=== PATIENT | female | born 1945 | race Caucasian/White ===

== ENCOUNTER 2025-02-17 08:51 | Emergency (ER) | payer MEDICARE, OTHER ==
[2025-02-17 09:00] VITALS: RESP 18
--- NOTE | 2025-02-17 09:01 | ED ---
General Adult HPI - General Chief complaint: Abdominal Pain Stated complaint: Abd Pain Time Seen by Provider: 02/17/25 08:52 Source: patient, EMS, RN notes reviewed Mode of arrival: EMS Limitations: no limitations - History of Present Illness Initial comments: Patient is a 79-year-old female present to the emergency department with concerns with abdominal discomfort. Onset of symptoms was around 8 days ago. Patient was constipated. Patient then took laxatives. Patient has had diarrhea for the last day. Patient is having discomfort still. Patient has had nausea however only vomited 1 time. Zofran provided by EMS. No nausea at this time. Patient has had decreased appetite and decreased oral intake. No history of chronic similar symptoms previously - Related Data Allergies Allergy/AdvReac Type Severity Reaction Status Date / Time No Known Allergies Allergy Verified 02/17/25 08:59 Review of Systems ROS Statement: Those systems with pertinent positive or pertinent negative responses have been documented in the HPI. ROS Other: All systems not noted in ROS Statement are negative. Constitutional: Denies: fever Eyes: Denies: eye pain ENT: Denies: ear pain Respiratory: Denies: cough, dyspnea Cardiovascular: Denies: chest pain Gastrointestinal: Reports: as per HPI, abdominal pain, nausea, vomiting, diarrhea, constipation Musculoskeletal: Denies: back pain Past Medical History Past Medical History: Hyperlipidemia, Hypertension History of Any Multi-Drug Resistant Organisms: None Reported Past Surgical History: Orthopedic Surgery Additional Past Surgical History / Comment(s): Lt hip 05/02/2024 at [facility]. Past Psychological History: No Psychological Hx Reported General Exam Limitations: no limitations General appearance: alert, in no apparent distress Head exam: Present: normocephalic Eye exam: Present: normal appearance Neck exam: Present: normal inspection Respiratory exam: Present: normal lung sounds bilaterally Cardiovascular Exam: Present: regular rate, normal rhythm GI/Abdominal exam: Present: soft, tenderness (Mild to moderate diffuse tenderness, upper greater than lower abdomen), normal bowel sounds. Absent: distended, guarding, rebound, rigid, pulsatile mass Extremities exam: Present: normal inspection Neurological exam: Present: alert Psychiatric exam: Present: normal affect, normal mood Skin exam: Present: normal color Course Vital Signs 02/17/25 08:54 Temperature 97.1 F L Pulse Rate 94 Respiratory 18 Rate Blood Pressure 180/93 O2 Sat by Pulse 95 Oximetry Medical Decision Making - Medical Decision Making Was pt. sent in by a medical professional or institution (YISEL Malik, CANOPY INSPECTOR, urgent care, hospital, or jail...) When possible be specific @ -No Did you speak to anyone other than the patient for history (EMS, parent, family, police, friend...)? What history was obtained from this source @ -No Did you review nursing and triage notes (agree or disagree)? Why? @ -I reviewed and agree with nursing and triage notes Were old charts reviewed (outside hosp., previous admission, EMS record, old EKG, old radiological studies, urgent care reports/EKG's, jail records)? Report findings @ -No old charts were reviewed Differential Diagnosis (chest pain, altered mental status, abdominal pain women, abdominal pain men, vaginal bleeding, weakness, fever, dyspnea, syncope, headache, dizziness, GI bleed, back pain, seizure, CVA, palpatations, mental health, musculoskeletal)? @ -Differential Abdominal Pain Women: Appendicitis, Cholecystitis, diverticulosis, ischemic bowel, pancreatitis, hepatitis, UTI, gastroenteritis, AAA, incarcerated hernia, bowel obstruction, constipation, inflammatory bowel, hepatitis, peptic ulcer disease, splenic infarction, perforated viscus, vulvitis, ovarian torsion, PID, kidney stone, placenta abruption, this is not meant to be an all-inclusive list EKG interpreted by me (3pts min.). @ -As above X-rays interpreted by me (1pt min.). @ -None done CT interpreted by me (1pt min.). @ -CT scan shows colitis, probable ovarian cyst, compression fracture, atelectasis U/S interpreted by me (1pt. min.). @ -None done What testing was considered but not performed or refused? (CT, X-rays, U/S, labs)? Why? @ -None What meds were considered but not given or refused? Why? @ -None Did you discuss the management of the patient with other professionals (professionals i.e. YISEL Malik, CANOPY INSPECTOR, lab, RT, psych nurse, licensed master social worker, assembly line machine operator, teacher, veterinary medical officer, geriatric case manager)? Give summary @ -No Was smoking cessation discussed for >3mins.? @ -No Was critical care preformed (if so, how long)? @ -No Were there social determinants of health that impacted care today? How? (Homelessness, low income, unemployed, alcoholism, drug addiction, transportation, low edu. Level, literacy, decrease access to med. care, fdc, rehab)? @ -No Was there de-escalation of care discussed even if they declined (Discuss DNR or withdrawal of care, Hospice)? DNR status @ -No What co-morbidities impacted this encounter? (DM, HTN, Smoking, COPD, CAD, Cancer, CVA, ARF, Chemo, Hep., AIDS, mental health diagnosis, sleep apnea, morbid obesity)? @ -Patient states there was a history of back injury 3 years ago. Patient denies any cough or difficulty breathing or upper respiratory symptoms. Was patient admitted / discharged? Hospital course, mention meds given and route, prescriptions, significant lab abnormalities, going to OR and other pertinent info. @ -Patient presents with abdominal symptoms. CAT scan concerning for colitis. Patient reevaluated and feeling much better. Patient will be discharged with primary care physician update. Patient updated on results and need for follow- up. Undiagnosed new problem with uncertain prognosis? @ -No Drug Therapy requiring intensive monitoring for toxicity (Heparin, Nitro, Insulin, Cardizem)? @ -No Were any procedures done? @ -No Diagnosis/symptom? @ -Colitis Acute, or Chronic, or Acute on Chronic? @ -Acute Uncomplicated (without systemic symptoms) or Complicated (systemic symptoms)? @ -Default Side effects of treatment? @ -No Exacerbation, Progression, or Severe Exacerbation? @ -No Poses a threat to life or bodily function? How? (Chest pain, [place], [place], pneumonia, PE, COPD, DKA, ARF, appy, cholecystitis, CVA, Diverticulitis, Homicidal, Suicidal, threat to staff... and all critical care pts) @ -No - Lab Data Result diagrams: 02/17/25 09:15 02/17/25 09:15 Lab Results 02/17/25 02/17/25 02/17/25 Range/Units 09:15 09:15 09:15 WBC 9.82 (4.50-10.00) 10*3/uL RBC 3.58 L (4.10-5.20) 10*6/uL Hgb 11.9 L (12.0-15.0) g/dL Hct 35.0 L (37.2-46.3) % MCV 97.8 H (80.0-97.0) fL MCH 33.2 H (27.0-32.0) pg MCHC 34.0 (32.0-37.0) g/dL Plt Count 336 (140-440) 10*3/uL MPV 9.0 L (9.5-12.2) fL Immature Gran % (Auto) 0.4 % Neutrophils % 86.4 % Lymphocytes % 8.9 % Monocytes % 3.8 % Eosinophils % 0.0 % Basophils % 0.5 % Immature Gran # 0.04 (0.00-0.04) 10*3/uL Neutrophils # 8.49 H (1.80-7.70) 10*3/uL Lymphocytes # 0.87 L (0.90-5.00) 10*3/uL Monocytes # 0.37 (0.20-1.00) 10*3/uL Eosinophils # 0.00 L (0.04-0.35) 10*3/uL Basophils # 0.05 (0.00-0.10) 10*3/uL PT 10.6 (10.0-12.5) sec INR 0.9 (<1.2) APTT 22.2 (22.0-30.0) sec Sodium 135 L (137-145) mmol/L Potassium 3.0 L (3.5-5.1) mmol/L Chloride 95 L (98-107) mmol/L Carbon Dioxide 27 (22-30) mmol/L Anion Gap 13 mmol/L BUN 16 (7-17) mg/dL Creatinine 0.74 (0.52-1.04) mg/dL Est GFR (CKD-EPI)AfAm 90 (>60 ml/min/1.73 sqM) Est GFR (CKD-EPI)NonAf 78 (>60 ml/min/1.73 sqM) Glucose 107 H (74-99) mg/dL Calcium 9.4 (8.4-10.2) mg/dL Total Bilirubin 0.6 (0.2-1.3) mg/dL AST 47 H (14-36) U/L ALT 36 H (4-34) U/L Alkaline Phosphatase 120 (38-126) U/L Total Protein 6.9 (6.3-8.2) g/dL Albumin 3.9 (3.5-5.0) g/dL Amylase 62 (30-110) U/L Lipase 53 (23-300) U/L Disposition Clinical Impression: Colitis Disposition: HOME SELF-CARE Condition: Stable Instructions (If sedation given, give patient instructions): Colitis (ED) Additional Instructions: Please have your primary care physician review his CAT scan results from today. Please do follow-up with your primary care physician next week. Return for increased pain, vomiting, not tolerating oral intake, fevers, worsening or change in symptoms or other concerns. Is patient prescribed a controlled substance at d/c from ED?: No Referrals: Joy Ward MD [Primary Care Provider] - 1-2 days Time of Disposition: 11:11
[2025-02-17] MEDS: SODIUM CHLORIDE 0.9% 500 ML 500 ML IV STA (09:16)
[2025-02-17] MEDS: MORPHINE SULFATE 2 MG/ML SYRINGE IVP STA (09:17)
[2025-02-17] MEDS: FAMOTIDINE 20 MG/2 ML VIAL IV STA (09:20)
[2025-02-17 09:33] LABS: Basophils # (A) 0.05 10*3/uL (0.00-0.10); Basophils % (A) 0.5 %; HGB 11.9 g/dL (12.0-15.0); Lymphocytes # (A) 0.87 10*3/uL (0.90-5.00); Lymphocytes % (A) 8.9 %; MCH 33.2 pg (27.0-32.0); MCV 97.8 fL (80.0-97.0); Monocytes # (A) 0.37 10*3/uL (0.20-1.00); Monocytes % (A) 3.8 %; Neutrophils # (A) 8.49 10*3/uL (1.80-7.70); Neutrophils % (A) 86.4 %; Platelet Count 336 10*3/uL (140-440); RBC 3.58 10*6/uL (4.10-5.20); RDW 12.7 % (11.5-14.5); WBC 9.82 10*3/uL (4.50-10.00)
[2025-02-17 09:44] LABS: INR 0.9 (<1.2); Partial Thromboplastin Time 22.2 sec (22.0-30.0); Prothrombin Time 10.6 sec (10.0-12.5)
[2025-02-17 09:46] LABS: ALT 36 U/L (4-34); AST 47 U/L (14-36); African American GFR (CKD) 90 (>60 ml/min/1.73 sqM); Albumin 3.9 g/dL (3.5-5.0); Alkaline Phosphatase 120 U/L (38-126); Amylase 62 U/L (30-110); Anion Gap 13 mmol/L; Blood Urea Nitrogen 16 mg/dL (7-17); Calcium 9.4 mg/dL (8.4-10.2); Carbon Dioxide 27 mmol/L (22-30); Chloride 95 mmol/L (98-107); Glucose 107 mg/dL (74-99); Lipase 53 U/L (23-300); Non-African American GFR(CKD) 78 (>60 ml/min/1.73 sqM); Sodium 135 mmol/L (137-145); Total Bilirubin 0.6 mg/dL (0.2-1.3); Total Protein 6.9 g/dL (6.3-8.2)
--- NOTE | 2025-02-17 10:49 | CT ---
EXAMINATION TYPE: CT abdomen pelvis w con DATE OF EXAM: 02/17/2025 10:12 AM COMPARISON: CT 03/11/2023. CLINICAL INDICATION: Female, 79 years old with history of abdominal pain; abdominal pain and constipa tion x 8 days TECHNIQUE: Axial CT abdomen pelvis w con;Sagittal and coronal reformats were created on a separate w orkstation. Contrast used:70ml mL of Isovue 300 with IV Contrast, (none if empty) Oral contrast used: without Oral Contrast (none if empty) CT DLP: 335.8 mGycm, Automated exposure control for dose reduction was used. FINDINGS: LOWER CHEST: Patchy airspace opacities in the left lower lung. ABDOMEN LIVER: Scattered simple appearing hepatic cysts.r largest in the left hepatic lobe measuring 23 mm. GALLBLADDER AND BILE DUCTS: Unremarkable. PANCREAS: Unremarkable. SPLEEN: Unremarkable. ADRENAL GLANDS: Unremarkable. KIDNEYS AND URETERS: No evidence of hydronephrosis or obstructing renal calculus. The ureters are unr emarkable. Nonobstructing focus measuring up to 13 mm. PELVIS BLADDER: No evidence for wall thickening or mass given limitations of exam. REPRODUCTIVE: Right adnexal possible cyst measuring up to 2.8 cm. ABDOMEN & PELVIS STOMACH AND BOWEL: No evidence of bowel obstruction. Mild circumferential wall thickening of the sple zaida flexure extending down ascending colon PERITONEUM/RETROPERITONEUM: No evidence of pneumoperitoneum or free fluid. VASCULATURE: Moderate atherosclerotic calcifications are present throughout the abdominal aorta and i ts branches. No evidence of aortic aneurysm. MUSCULOSKELETAL: No acute osseous abnormalities compression deformity to the T12 vertebral body with greater than 50% height loss anteriorly. There is 4 mm retropulsion with mild spinal canal stenosis. Findings new from prior 03/11/2023. Left hip arthroplasty appears intact. Mild degeneration changes of the right hip with osteophyte form ation and joint space narrowing. LYMPH NODES: No gross evidence for lymphadenopathy. SOFT TISSUE/ABDOMINAL WALL: Unremarkable IMPRESSION: 1. Colitis of the splenic flexure of the colon extending down the descending colon. 2. Left lower lung airspace opacities with atelectasis correlate for pneumonia. 3. New from prior, compression deformity with greater than 50% height loss of the L1 vertebral body. Mild 4 mm retropulsion present. Further evaluation with MRI is recommended to evaluate for acuity. C orrelate with back pain. 4. Right adnexal cyst measuring up to 2.8 cm possibly a ovarian cyst. Consider nonemergent follow-up in 6 months to one year to ensure stability. 5. Nonobstructing left renal calculus. 6. Scattered simple appearing hepatic cysts no follow-up recommended. 7. Moderate 2 severe atherosclerosis. [facility], , 02/17/2025 10:47 AM
[2025-02-17 11:34] VITALS: BP 131/81; PULSE 89; TEMP 98.9
== END 2025-02-17 11:46 | disposition home or self-care (01) ==
LOC: EC 08:51
DX: K52.9 Noninfective gastroenteritis and colitis, unspecified (principal)
CPT/HCPCS: 36415; 80053; 82150; 83690; 85025; 85610; 85730; 74177; 99284; 96374; 96375; 96361; J2270; Q9967; J1308

== ENCOUNTER → 2025-04-24 | Outpatient (CLI) | payer MEDICARE, OTHER ==
--- NOTE | 2025-04-25 12:13 | CA ---
Transthoracic Echo Report Name: Louann Knowles Age: 79 Gender: F : 1945 Exam Date: 04/24/2025 13:06 Exam Location: [place] [facility] Ht (in): 61 Wt (lb): 90 Ordering Physician: Joy Ward MD Attending/Referring Phys: Romina Silverman [facility] Manager Clinical Marisa Nevarez RDCS Procedure CPT: Indications: R60.0 LOCALIZED EDEMA Cardiac Hx: Technical Quality: Fair Contrast 1: Total Dose (mL): Contrast 2: Total Dose (mL): MEASUREMENTS (Male / Female) Normal Values 2D ECHO LV Diastolic Diameter PLAX 4.1 cm 4.2 - 5.9 / 3.9 - 5.3 cm LV Systolic Diameter PLAX 2.9 cm IVS Diastolic Thickness 0.9 cm 0.6 - 1.0 / 0.6 - 0.9 cm LVPW Diastolic Thickness 0.7 cm 0.6 - 1.0 / 0.6 - 0.9 cm LV Relative Wall Thickness 0.4 RV Internal Dim ED PLAX 1.8 cm LA Systolic Diameter LX 3.3 cm 3.0 - 4.0 / 2.7 - 3.8 cm LV Diastolic Volume MOD BP 36.6 cm??? 67 - 155 / 56 - 104 cm??? LV Systolic Volume MOD BP 15.3 cm??? 22 - 58 / 19 - 49 cm??? LV Ejection Fraction MOD BP 58.3 % >= 55 % LV Cardiac Index MOD BP 1083.8 cm???/min???m??? LV Diastolic Volume MOD 4C 42.7 cm??? LV Systolic Volume MOD 4C 12.0 cm??? LV Ejection Fraction MOD 4C 71.8 % LV Cardiac Index MOD 4C 1560.6 cm???/min???m??? LV Diastolic Length 4C 6.4 cm LV Systolic Length 4C 4.4 cm LV Diastolic Volume MOD 2C 31.5 cm??? LV Systolic Volume MOD 2C 16.1 cm??? LV Ejection Fraction MOD 2C 48.8 % LV Cardiac Index MOD 2C 781.3 cm???/min???m??? LV Diastolic Length 2C 6.3 cm LV Systolic Length 2C 5.4 cm LA Volume 28.5 cm??? 18 - 58 / 22 - 52 cm??? LA Volume Index 21.6 cm???/m??? 16 - 28 cm???/m??? M-MODE Aortic Root Diameter MM 2.6 cm LA Systolic Diameter MM 2.7 cm LA Ao Ratio MM 1.1 AV Cusp Separation MM 1.4 cm DOPPLER AI Peak Velocity 353.6 cm/s AI Peak Gradient 50.0 mmHg AI Pressure Half Time 924.8 ms MV Area PHT 3.0 cm??? Mitral E Point Velocity 75.1 cm/s Mitral A Point Velocity 83.9 cm/s Mitral E to A Ratio 0.9 MV Deceleration Time 251.6 ms TR Peak Velocity 246.1 cm/s TR Peak Gradient 24.2 mmHg FINDINGS Left Ventricle Left ventricular ejection fraction is estimated at 55-60 %. Normal left ventricular systolic function with no obvious regional wall motion abnormalities. Left ventricular cavity size normal. Left ventricular wall thickness normal. Right Ventricle Normal right ventricular size and function. Right ventricular systolic pressure within normal limits. Right Atrium Mild right atrial dilatation. Left Atrium Mild left atrial dilatation. Mitral Valve Structurally normal mitral valve. Mild mitral regurgitation. No mitral stenosis. Aortic Valve Trileaflet aortic valve. No aortic stenosis. Mild aortic regurgitation. Tricuspid Valve Structurally normal tricuspid valve. Mild tricuspid regurgitation. No tricuspid stenosis. Pulmonic Valve Structurally normal pulmonic valve. Trace to mild pulmonic regurgitation. No pulmonic stenosis. Pericardium Small pericardial effusion. Pericardial effusion located anteriorly. Aorta Normal size aortic root and proximal ascending aorta. CONCLUSIONS Normal LV systolic function Mild aortic insufficiency Trace pericardial effusion Previewed by: Dr. Jose Eduardo Gonzales MD (Electronically Signed) Final Date: 25 April 2025 12:12
== END | disposition home or self-care (01) ==
LOC: RADECHMAIN 12:53
PROVIDERS: ATTEND Internal Medicine
DX: I31.39 Other pericardial effusion (noninflammatory) (principal); R60.0 Localized edema; I35.1 Nonrheumatic aortic (valve) insufficiency
CPT/HCPCS: 93306